=== PATIENT | male | born 1985 | race Two or more races ===

== ENCOUNTER 2025-01-26 03:39 | Emergency (ER) | payer MEDICAID, SELFPAY ==
[2025-01-26] VITALS (14 sets, daily range): BP systolic 113–163; BP diastolic 70–96; PULSE 85–107; RESP 12–21; TEMP 36.8–37.3; O2SAT 96–99; BMI 31.6
--- NOTE | 2025-01-26 03:46 | PD.EDMEDCL ---
ED Medical Clearance RME/HPI General Chief complaint: Medical Clearance Stated complaint: MEDICAL CLEARANCE Time Seen by Provider: 01/26/25 03:55 Arrival date/time: 01/26/25 03:39 RME / HPI RME / HPI Narrative: Dr. Shell?s Main ED Evaluation: 39yo male with a history of chronic anemia who is unsure of his baseline blood counts reportedly underwent Hgb analysis at the local alf now presents for medical screening for requirements of blood transfusion. Hgb 7.1 by report. Patient denies shortness of breath, chest pain, DWYER, palpitations, lightheadedness, dizziness, or near syncope. PMH anemia of unclear etiology; no DM or HTN. PSH noncontributory. Social history includes no active tobacco or alcohol use. Review of Systems Review of Systems Systems Reviewed: All systems reviewed, normal except as documented ED Exam Narrative Physical exam: GENERAL APPEARANCE: alert and oriented x 4, well-developed, well-nourished, nontoxic, interacting appropriately, no acute distress VITALS: All vitals were reviewed and the pulse ox is % on room air, which is normal according to my interpretation. HEENT: normocephalic, atraumatic, mild scleral pallor NECK: supple LUNGS: no respiratory distress, normal effort HEART: good peripheral perfusion; mildly tachycardic ABDOMEN: non distended EXTREMITIES: atraumatic NEUROLOGIC: awake; alert and oriented x4; cranial nerves II-XII grossly intact PSYCHIATRIC: appropriate mood and affect SKIN: warm, dry, normal color; no rashes Course Quality Measures none Orders Category Date Time Status Transfuse,blood/blood products NOW Care 01/26/25 05:11 Active CBC [CBC] Stat Lab 01/26/25 04:32 Completed CMP [Comprehensive Metabolic Panel] Stat Lab 01/26/25 04:32 Completed Type and Screen Stat Lab 01/26/25 04:32 Results Urinalysis, C/S if Indicated Stat Lab 01/26/25 04:26 Completed prbc [Red Blood Cells] Stat Lab 01/26/25 04:32 Results Vital Signs Vital signs: Vital Signs Temperature 98.2 F 01/26/25 03:47 Pulse Rate 107 H 01/26/25 03:47 Respiratory Rate 18 01/26/25 03:47 Blood Pressure 133/81 H 01/26/25 03:47 Pulse Oximetry (%) 96 01/26/25 03:47 Oxygen Delivery Method Room Air 01/26/25 03:47 Medical Clearance [facility] Narrative [facility] Narrative:: Scribe Attestation: 01/26/25 Key Humphreys am scribing for and in the presence of Dr. Shell. 39yo male with a history of chronic anemia who is unsure of his baseline blood counts reportedly underwent Hgb analysis at the local alf now presents for medical screening for requirements of blood transfusion. Hgb 7.1 by report. Please see PE findings. Patient denies melena, recent hematemesis, or history of GI hemorrhage. Patient is asymptomatic. Lab markers demonstrated Hgb 6.9. Most recent Hgb dates back to 5 years and was 11.5. Patient however indicated that Hgb likely between 7-8 at baseline. Given apparent protocol at the local alf, will transfuse 2 units pRBCs and discharge with precaution instructions. Patient data External records reviewed:: [facility] previous records (Per chart review, patient has no previous ED visits or admissions to this facility.) Clinical information provided by:: patient and law enforcement Social determinants that could affect healthcare access:: none Patient has the following chronic illnesses:: none How is presenting disease/condition affected by chronic disease/condition?: no chronic disease Evaluation data The following diagnostics were reviewed and interpreted by me:: lab results Lab and/or radiology exams considered but not ordered:: none Interpretation Summary: See MDM narrative. Medications / Prescriptions Medications or Prescriptions considered but not ordered:: none Medication administrations:: 2U pRBCs Consultations Consultation(s) initiated? (list below): No Diagnosis Medical Clearance Differential Diagnosis: other (chronic anemia, mild dysplasia, chronic intermittent GI hemorrhage) Most likely diagnosis given after review of the tests above:: see clinical impression below Admission Indicated Admission indicated?: not indicated Admission Request Was there a request for admission?: No Disposition Plan Disposition Plan: Discharge Discharge Attestation Discharge Attestation: The patient and all family members were given an opportunity to ask questions and understood the discharge instructions. Discharge instructions specifically effects, indications for sooner follow up or return to the emergency department, and the expected course of current diagnosis. Patient condition: Stable Discharge Plan Plan Patient Disposition: Skilled Nursing/Court/Law Discharge Disposition comment: Stable Prescriptions/Referrals Referrals: No Primary/Family,Physician [Primary Care Provider] - In 1 week Problem List Clinical Impression: Anemia in chronic illness Patient/Caregiver Discharge Instructions Discharge Activity: activity as tolerated Diet Instructions: Regular Education Materials: Anemia Additional Instructions: Follow-up with PMD in 1 to 2 weeks. Return for lightheadedness dizziness chest pain shortness of breath or worsening illness Print Language: [place]
[2025-01-26 04:37] LABS: Collection Type, Urine Clean Catch; Squamous Epithelial Cell,Urine 0 /hpf (0-5)
[2025-01-26 04:46] LABS: Basophils # (Auto) 0.0 Thou/mm3 (0.0-0.2); Basophils % (Auto) 2 % (0-2.5); Eosinophils # (Auto) 0.1 Thou/mm3 (0.0-0.5); Eosinophils % (Auto) 3 % (0-10); Hematocrit 24.3 % (41.0-53.0); Immature Granulocytes Auto 0.01 Thou/mm3 (0.00-0.00); Lymphocytes # (Auto) 0.6 Thou/mm3 (1.0-4.8); Lymphocytes % (Auto) 23 % (10-50); Mean Corpuscular HGB Conc 28.4 g/dl (31.0-37.0); Mean Corpuscular Hemoglobin 18.1 pg (25.0-35.0); Mean Corpuscular Volume 64 fL (80-100); Monocytes # (Auto) 0.3 Thou/mm3 (0.0-0.8); Monocytes % (Auto) 12 % (0-12); Neutrophils # (Auto) 1.6 Thou/mm3 (1.8-7.7); Neutrophils % (Auto) 60 % (37-80); Nucleated Red Blood Cell # 0.00 Thou/mm3 (0.00-0.00); Nucleated Red Blood Cell % 0 /100 WBC (0); Platelet Count 238 Thou/mm3 (140-440); RDW Standard Deviation 45.5 fL (35.1-43.9); Red Blood Count 3.81 Miln/mm3 (4.50-5.90); White Blood Count 2.7 Thou/mm3 (3.8-10.6)
[2025-01-26 04:46] LABS: Bilirubin,Urine Negative (Negative); Blood,Urine Negative (Negative); Clarity,Urine Clear (Clear/Hazy); Color,Urine Lt-Yellow (Lt Yel-Yel); Culture Indicated,Urine Not Indicated; Glucose, Urine Negative (Negative); Ketones,Urine Negative (Negative); Leukocyte Esterase,Urine Negative (Negative); Nitrite,Urine Negative (Negative); PH,Urine 6.0 (5.0-7.0); Protein,Urine 1+ (Neg - Trace); RBC,Urine 1 /hpf (0-3); Specific Gravity,Urine 1.009 (1.001-1.035); Urobilinogen,Urine Negative mg/dL (0.0-1.0); WBC,Urine < 1 /hpf (0-5)
[2025-01-26 05:00] LABS: Hemoglobin 6.9 g/dL (13.5-16.0)
[2025-01-26 05:04] LABS: Alanine Aminotransferase 29 U/L (10-49); Albumin, Serum 4.0 gm/dL (3.5-5.0); Albumin/Globulin Ratio 1.1 (1.2-2.2); Alkaline Phosphatase 118 U/L (46-116); Anion Gap 12 (7-16); Aspartate Amino Transferase 82 U/L (0-34); BUN/Creatinine Ratio 6 Ratio (12-20); Bilirubin,Total 0.9 mg/dL (0.3-1.2); Blood Urea Nitrogen < 5 mg/dL (9-23); Calcium 8.0 mg/dL (8.3-10.6); Calcium (Corrected) 8.0 mg/dL (8.5-10.1); Carbon Dioxide 22.9 mMol/L (20.0-31.0); Chloride 108 mMol/L (98-107); Creatinine (Component) 0.8 mg/dL (0.6-1.3); Estimated Creatinine Clearance 174.0 mL/min (>60); Globulin 3.7 gm/dL (2.3-3.5); Glucose 115 mg/dL (74-106); Osmolality,Calculated 283 (275-295); Potassium 3.6 mMol/L (3.4-5.1); Sodium 143 mMol/L (136-145); Total Protein 7.7 gm/dL (5.7-8.2); eGFR > 60 See Note
[2025-01-26 06:58] LABS: Path Review Blood Smear Sent to Pathologist
== END 2025-01-26 14:35 ==
PROVIDERS: Emergency Provider Emergency Medicine
DX: Z02.89 Encounter for other administrative examinations (principal); D64.9 Anemia, unspecified; Z65.3 Problems related to other legal circumstances
CPT/HCPCS: 36415; 36430; 80053; 81001; 85025; 86850; 86900; 86901; 86923; 99284; P9016